=== PATIENT | male | born 2000 | race Caucasian/White ===

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

== ENCOUNTER 2021-01-10 13:15 | Outpatient (CLI) | payer BC | END 2021-01-10 13:16 | disposition home or self-care (01) | LOC: BICULT 13:15 | PROVIDERS: ATTEND Family Medicine | DX: R03.0 Elevated blood-pressure reading, without diagnosis of hypertension (principal) | CPT/HCPCS: 76770 ==